=== PATIENT | female | born 1985 | race Caucasian/White ===

== ENCOUNTER 2024-03-20 10:48 | Outpatient (OUT) | payer SELFPAY ==
--- NOTE | 2024-03-20 | XR_ITS ---
[address] [address] Patient Name: ANNIA BENTLEY MRN: [id number] date: 1985 Sex: F Assigned Patient Location: Current Patient Location: Accession/Order Number: [id number] Exam Date: 03/20/2024 11:00 Report Date: 03/22/2024 05:27 At the request of: NICOL MURPHY Procedure: XR foot RT min 3V PROCEDURE: XR ankle RT min 3V, XR foot RT min 3V HISTORY: RIGHT ANKLE PAIN ; posterior malleolus pain after injury COMPARISON: None. FINDINGS: BONES:No fracture, acute abnormality, or significant arthropathy. SOFT TISSUES:No visible soft tissue swelling. EFFUSION:None visible. OTHER: Negative. XR/XR foot RT min 3V IMPRESSION: 1. Normal examination. Electronically authenticated by: EDWARD LAL Date: 03/22/2024 05:27
--- NOTE | 2024-03-20 | XR_ITS ---
[address] [address] Patient Name: NANIA BENTLEY MRN: [id number] date: 1985 Sex: F Assigned Patient Location: Current Patient Location: Accession/Order Number: [id number] Exam Date: 03/20/2024 10:53 Report Date: 03/22/2024 05:27 At the request of: NICOL MURPHY Procedure: XR ankle RT min 3V PROCEDURE: XR ankle RT min 3V, XR foot RT min 3V HISTORY: RIGHT ANKLE PAIN ; posterior malleolus pain after injury COMPARISON: None. FINDINGS: BONES:No fracture, acute abnormality, or significant arthropathy. SOFT TISSUES:No visible soft tissue swelling. EFFUSION:None visible. OTHER: Negative. XR/XR ankle RT min 3V IMPRESSION: 1. Normal examination. Electronically authenticated by: EDWARD LAL Date: 03/22/2024 05:27
== END 2024-03-20 10:49 | disposition home or self-care (01) ==
LOC: EC 10:48
PROVIDERS: PCP Family Medicine; Visit Provider Podiatrist Foot & Ankle Surgery
DX: M25.571 Pain in right ankle and joints of right foot (principal); M79.671 Pain in right foot
CPT/HCPCS: 73610; 73630

== ENCOUNTER 2024-03-31 15:44 | Outpatient (OUT) | payer BC, SELFPAY ==
--- NOTE | 2024-03-31 15:51 | MR_ITS ---
[address] [address] Patient Name: ANNIA BENTLEY MRN: [id number] date: 1985 Sex: F Assigned Patient Location: MRI Current Patient Location: MRI Accession/Order Number: [id number] Exam Date: 03/31/2024 15:53 Report Date: 04/01/2024 17:06 At the request of: NICOL MURPHY Procedure: MR ankle RT wo con EXAM: MR ankle RT wo con HISTORY: Sprain, Tendon Tear COMPARISON: 03/20/2024 TECHNIQUE: MRI images obtained with multiple sequences. MRI of the right ankle without contrast. Sequences obtained by standard department protocol. FINDINGS: No significant degeneration of the ankle joint, subtalar joint, or visualized portions of the midfoot. Achilles tendon is intact. Deltoid ligament fibers are intact. Anterior and posterior syndesmotic ligaments are intact. Anterior talofibular, posterior talofibular, and calcaneofibular ligaments are intact. Small subtalar joint effusion. No acute fractures. No acute bone marrow edema. Extensor, flexor, and peroneal tendons are intact. MR/MR ankle RT wo con IMPRESSION: 1. No acute fractures. No acute bone marrow edema. 2. No acute ligamentous or tendinous abnormality. 3. No significant joint degeneration. Electronically authenticated by: PEPE HAMMONDS Date: 04/01/2024 17:06
== END 2024-03-31 15:45 | disposition home or self-care (01) ==
LOC: MRI 15:46
PROVIDERS: PCP Family Medicine; Visit Provider Podiatrist Foot & Ankle Surgery
DX: S93.401A Sprain of unspecified ligament of right ankle, initial encounter (principal)
CPT/HCPCS: 73721